=== PATIENT | male | born 1960 | race African-American/Black ===

== ENCOUNTER 2019-01-27 07:43 | Emergency (ER) | payer OTHER ==
[2019-01-27] MEDS ORDERED: Ketorolac Tromethamine 30 MG/ML VIAL ONE (08:17)
[2019-01-27] MEDS ORDERED: HYDROcodone/Acetaminophen 10/325 mg Tablet ONE (08:17)
--- NOTE | 2019-01-27 08:37 | RAD ---
LEFT WRIST 3 VIEWS: HISTORY: Wrist pain. FINDINGS: There are arthritic changes of the wrist. There are some mild arthritic changes of the 1st carpometa carpal joint space and slightly more pronounced changes of the triscaphe joint. There is a tiny cyst formation seen within the lunate. There are no signs of any fracture. IMPRESSION: Mild arthritic changes of the wrist. No acute findings. POS: [facility]
== END 2019-01-27 10:10 | disposition home or self-care (01) ==
LOC: ERS 07:43
DX: M54.5 Low back pain (principal)
CPT/HCPCS: J1885

== ENCOUNTER 2019-03-20 06:47 | Emergency (ER) | payer BC ==
[2019-03-20] MEDS ORDERED: Acetaminophen 500 MG TAB ONE (07:36)
[2019-03-20] MEDS ORDERED: Ketorolac Tromethamine 30 MG/ML VIAL ONE (07:36)
--- NOTE | 2019-03-20 07:50 | RAD ---
EXAM: 3 views of the lumbosacral spine HISTORY: Low back pain COMPARISON: 10/26/2018 FINDINGS: 3 views of the lumbosacral spine shows normal height of the vertebral bodies and interverte bral discs without fracture or subluxation. There is stable subtle anterolisthesis of L4 and L5. No significant degenerative changes are seen. Hardware is seen in the left sacrum. IMPRESSION: No evidence of acute lumbar spine abnormality.
== END 2019-03-20 09:17 | disposition home or self-care (01) ==
LOC: ERS 06:47
DX: M53.3 Sacrococcygeal disorders, not elsewhere classified (principal); Z79.899 Other long term (current) drug therapy
CPT/HCPCS: 72100; 96372; J1885

== ENCOUNTER 2019-04-25 08:30 | Outpatient (CLI) | payer BC ==
--- NOTE | 2019-04-25 08:54 | RAD ---
EXAM: Lumbar spine 5 views including flexion and extension weightbearing views HISTORY: Low back pain COMPARISON: 03/20/2019 FINDINGS: Postoperative changes left sacroiliac region No evidence for acute fracture or dislocation involving the visualized spine. There are disc osteophytosis and facet arthrosis changes. No evidence for malalignment. No evidence for a bone lesion. IMPRESSION: Spondylosis. Postoperative changes. No abnormal translation between flexion and extension. Stable exam.
--- NOTE | 2019-04-25 09:53 | MRI ---
MR the lumbar spine without contrast: 04/25/2019 History: Low back pain radiating into the left lower extremity, radiculopathy COMPARISON: None. TECHNIQUE: Multiplanar multisequence MR images were obtained of lumbar spine without IV contrast FINDINGS: On the basis of 5 lumbar type vertebral bodies, conus medullaris terminates at [id number] level. Sagittal STIR imaging demonstrates no focal area of osseous marrow edema. Congenitally short pedicles leading to diffuse central canal stenosis throughout the lumbar spine, most prominent at the L4-5 level. T12-L1:Mild bilateral facet hypertrophy. Intervertebral disc height and signal intensity within clemencia l limits with no significant central canal or neural foraminal stenosis. L1-2:Intervertebral disc height and signal intensity within normal limits. Mild bilateral facet hyper trophy with no significant central canal or neural foraminal stenosis L2-3:Intervertebral disc height and signal intensity within normal limits. Mild bilateral facet hyper trophy with no significant central canal or neural foraminal stenosis. L3-4:Intervertebral disc height and signal intensity appears within normal limits. Mild bilateral fac et hypertrophy, right greater than left. There no significant central canal or neural foraminal stenosis. L4-5:There is disc desiccation and prominent bilateral facet hypertrophy with fluid within bilateral facet joints. There is moderate central canal stenosis. Mild bilateral neural foraminal stenosis. L5-S1:Bilateral facet hypertrophy, left greater than right. There is disc desiccation with mild centr al canal stenosis and mild left-sided neural foraminal stenosis. Image retroperitoneal structures demonstrateno acute findings. IMPRESSION: Lower lumbar spine degenerative change, most prominent at the L4-5 level. Fluid within the facet join ts may signify instability, which would be best assessed with flexion and extension radiographs.
== END 2019-04-25 08:31 | disposition home or self-care (01) ==
LOC: TBSIIMAG 08:30 → BICMRI 08:31
PROVIDERS: ATTEND Surgery
DX: M54.5 Low back pain (principal); M79.662 Pain in left lower leg; M47.816 Spondylosis without myelopathy or radiculopathy, lumbar region; Z98.890 Other specified postprocedural states
CPT/HCPCS: 72110; 72148

== ENCOUNTER 2019-12-06 21:35 | Emergency (ER) | payer OTHER, SELFPAY ==
[2019-12-06] MEDS ORDERED: Fluorescein Opthalmic Strip ONE (21:47)
[2019-12-06] MEDS ORDERED: Proparacaine 0.5% Opth 15 ML BOT ONE (21:48)
[2019-12-06] MEDS ORDERED: Nitrazine Tape 1 ROLL ONE ×2 (21:51→21:56)
== END 2019-12-06 22:50 | disposition home or self-care (01) ==
LOC: ERS 21:35
DX: H16.141 Punctate keratitis, right eye (principal); R03.0 Elevated blood-pressure reading, without diagnosis of hypertension; Z79.82 Long term (current) use of aspirin
CPT/HCPCS: 99283

== ENCOUNTER 2020-03-14 09:09 | Emergency (ER) | payer SELFPAY ==
[2020-03-14] MEDS ORDERED: Ketorolac Tromethamine 30 MG/ML VIAL ONE (10:51)
== END 2020-03-14 11:21 | disposition home or self-care (01) ==
LOC: ERS 09:09
DX: M54.42 Lumbago with sciatica, left side (principal)
CPT/HCPCS: 96372; 99283; J1885

== ENCOUNTER 2020-04-03 06:54 | Emergency (ER) | payer SELFPAY ==
--- NOTE | 2020-04-03 07:51 | RAD ---
Radiograph left foot 3 views: 04/03/2020 7:28 AM HISTORY: 59-year-old male status post acute blunt trauma to foot FINDINGS: Oblique fracture at distal diaphysis of fifth metatarsal with three fourths bone width medial displac ement, and mild plantar angulation, of distal fragment. There is a single butterfly fragment that is displaced. No dislocation. IMPRESSION: Acute, traumatic, mildly comminuted, displaced fracture of fifth metatarsal distal shaft
== END 2020-04-03 08:41 | disposition home or self-care (01) ==
LOC: ERS 06:54
DX: S92.352A Displaced fracture of fifth metatarsal bone, left foot, initial encounter for closed fracture (principal); W20.8XXA Other cause of strike by thrown, projected or falling object, initial encounter

== ENCOUNTER 2020-07-07 13:55 | Emergency (ER) | payer SELFPAY ==
[2020-07-07 14:20] LABS: #Basophils 0.1 thou/uL (0.0-0.2); #Lymphocytes 2.2 thou/uL (1.20-3.40); #Monocytes 0.6 thou/uL (0.11-0.59); #Neutrophils 3.6 thou/uL (1.40-6.50); %Basophils 1.9 % (0.0-1.0); %Eosinophils 0.4 % (0.0-10.0); %Lymphocytes 33.1 % (21.0-51.0); %Monocytes 9.7 % (0.0-10.0); %Neutrophils 54.9 % (42.0-75.0); Hemoglobin 15.8 g/dL (14.0-18.0); Mean Corpuscular HGB CONC 34.3 g/dL (32.0-36.0); Mean Corpuscular Hemoglobin 32.2 pg (27.0-31.0); Mean Corpuscular Volume 93.9 fL (78.0-98.0); Mean Platelet Volume 7.3 fL (7.4-10.4); Platelet Count 196 thou/uL (130-400); RBC Distribution Width 11.5 % (11.5-14.5); Red Blood Cell (RBC) Count 4.91 mill/uL (4.70-6.10); White Blood Cell (WBC) Count 6.6 thou/uL (4.8-10.8)
[2020-07-07] MEDS ORDERED: Acetaminophen 500 MG TAB ONE (14:42)
[2020-07-07] MEDS ORDERED: Diazepam 5 MG TAB ONE (14:50)
[2020-07-07 14:59] LABS: ALT (SGPT) 54 U/L (8-55); AST (SGOT) 71 U/L (5-34); Albumin 4.6 g/dL (3.5-5.0); Alkaline Phosphatase 62 U/L (40-110); Anion Gap 15 mmol/L (10-20); BUN (Urea Nitrogen) 26 mg/dL (8.4-25.7); Bilirubin, Total 1.1 mg/dL (0.2-1.2); Calc. Creatinine Clearance 0 mL/min (70-130); Calcium 10.1 mg/dL (7.8-10.44); Carbon Dioxide 26 mmol/L (22-29); Chloride 97 mmol/L (98-107); Globulin 3.8 g/dL (2.4-3.5); Glucose 92 mg/dL (70-105); Potassium 3.6 mmol/L (3.5-5.1); Protein, Total 8.4 g/dL (6.0-8.3); Sodium 134 mmol/L (136-145)
== END 2020-07-07 15:47 | disposition home or self-care (01) ==
LOC: ERS 13:55
DX: M62.82 Rhabdomyolysis (principal); R79.89 Other specified abnormal findings of blood chemistry
CPT/HCPCS: 80053; 82550; 85025; 99283